=== PATIENT | female | born 2005 | race African-American/Black ===

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

== ENCOUNTER → 2025-03-28 | Emergency (ER) | payer OTHER | LOC: ERS 16:55 | DX: Z53.21 Procedure and treatment not carried out due to patient leaving prior to being seen by health care provider (principal) ==